=== PATIENT | male | born 1985 ===

== ENCOUNTER 2016-10-02 21:16 | Emergency (ER) | payer BC ==
[2016-10-02] MEDS ORDERED: DIPHTH,PERTUSS(ACELL),TET VAC 0.5 ML VIAL IM ONE ×2 (21:26→22:52)
[2016-10-02 21:33] LABS: Hemoglobin 15.6 gm/dL (13.5-18.0); Mean Cell Volume 89.3 fl (78-100); Mean Corpuscular Hgb Conc 34.7 g/dl (32-36); Mean Platelet Volume 9.7 fl (6.0-9.5); Platelet Count 271 K/mm3 (150-450); Red Blood Count 5.04 M/mm3 (4.7-6.0); Red Cell Distribution Width 12.3 % (11.5-14.0); White Blood Count 12.1 K/mm3 (4.0-10.5)
[2016-10-02 21:34] LABS: Total Cells Counted 100
[2016-10-02 21:37] LABS: Albumin * 4.6 gm/dl (3.4-5.0); Anion Gap 13.5 mmol/L (6.8-13.8); Bilirubin, Total 0.4 mg/dL (0.0-1.1); Calcium * 8.8 mg/dL (7.9-10.9); Carbon Dioxide 30.1 mmol/L (24-32.6); Potassium 3.6 mmol/L (3.4-4.6); Total Protein 8.3 gm/dL (6.2-8.2)
[2016-10-02 21:42] LABS: Urine Bilirubin Negative (NEGATIVE); Urine Blood Negative /ul (NEGATIVE); Urine Ketone Negative (NEGATIVE); Urine Nitrite Negative (NEGATIVE); Urine Protein Negative (NEGATIVE); Urine Specific Gravity <=1.005 SP.GR. (1.005-1.030); Urine Urobilinogen Normal (NORMAL)
[2016-10-02 21:45] LABS: Cocaine Ur Negative (NEGATIVE); Urine Barbiturate Negative (NEGATIVE); Urine Benzodiazepines Negative (NEGATIVE); Urine Opiates Negative (NEGATIVE); Urine PCP Negative (NEGATIVE); Urine THC Negative (NEGATIVE)
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
[2016-10-02 21:56] LABS: Urine Appearance Clear; Urine Bacteria None Seen; Urine Color Pale Yellow; Urine RBC None Seen /hpf (0-5); Urine WBC None Seen /hpf (0-5)
[2016-10-02 22:07] LABS: Band 2 % (0-2.0); Lymphocyte 54 % (20-51); Monocyte 4 % (0-9); Neutrophil 40 % (42-75); Neutrophil # 4.8 K/mm3 (1.3-6.0)
[2016-10-02 22:08] LABS: Platelet Estimate Normal (NORMAL); RBC Morphology Normal (NORMAL)
[2016-10-02] MEDS ORDERED: NORMAL SALINE 1,000 ML IV ONE (22:46)
[2016-10-03 01:52] VITALS: BP 141/86
== END 2016-10-02 23:55 | disposition home or self-care (01) ==
LOC: ER 21:16
PROC: 0T9B70Z Drainage of Bladder with Drainage Device, Via Natural or Artificial Opening (ICD-10-PCS; principal; 2016-10-02)
DX: F10.120 Alcohol abuse with intoxication, uncomplicated (principal); S50.312A Abrasion of left elbow, initial encounter; S40.812A Abrasion of left upper arm, initial encounter; V89.2XXA Person injured in unspecified motor-vehicle accident, traffic, initial encounter; Z23 Encounter for immunization; Y90.8 Blood alcohol level of 240 mg/100 ml or more
CPT/HCPCS: 36415; 51702; 70450; 71260; 72125; 74177; 80053; 80307; 81001; 82150; 83690; 85007; 85025; 90471; 90715; 99283; G0481